=== PATIENT | male | born 1960 | race Caucasian/White ===

== ENCOUNTER 2022-07-21 03:30 | Observation (INO) ==
[2022-07-21] MEDS ORDERED: Ipratropium/Albuterol Neb 3 ML IH ONE (04:15)
[2022-07-21 04:53] LABS: Basophils # 0.1 K/mcL (0.0-0.2); Basophils % 0.5 %; Eosinophils # 0.1 K/mcL (0.0-0.6); Eosinophils % 0.5 %; Hematocrit 41.8 % (37.5-50.1); Hemoglobin 13.7 g/dL (12.9-16.9); Immature Granulocytes % 0.4 % (0-4); Lymphocytes # 0.6 K/mcL (0.6-4.6); Lymphocytes % 4.4 %; Mean Corpuscular HGB Conc 32.8 g/dL (31.6-35.5); Mean Corpuscular Hemoglobin 29.3 pg (28.0-33.3); Mean Corpuscular Volume 89.5 fL (83.0-100.0); Mean Platelet Volume 10.6 fL (9.4-12.4); Monocytes # 0.2 K/mcL (0.0-1.3); Monocytes % 1.4 %; Neutrophils # 12.4 K/mcL (1.6-8.9); Platelet Count 249 K/mcL (140-400); Red Blood Count 4.67 M/mcL (4.19-5.50); Red Cell Distribution Width 13.1 % (11.5-14.5); Segmented Neutrophils % 92.8 %; White Blood Count 13.3 K/mcL (4.3-11.1)
[2022-07-21 04:59] LABS: Prothrombin Time 11.3 Seconds (9.4-12.1)
[2022-07-21 05:03] LABS: Activated Partial Thrombo Time 35.3 Seconds (26.0-36.0)
[2022-07-21 05:16] LABS: Alanine Aminotransferase 18 Units/L (7-52); Albumin 4.5 g/dL (3.5-5.7); Albumin/Globulin Ratio 1.6 (1.1-2.2); Alkaline Phosphatase 67 Units/L (34-104); Aspartate Amino Transferase 18 Units/L (13-39); BUN/Creatinine Ratio 13 (6-26); Bilirubin,Direct 0.2 mg/dL (0.0-0.2); Bilirubin,Indirect 0.6 mg/dL (0.0-1.0); Bilirubin,Total 0.8 mg/dL (0.3-1.0); Blood Urea Nitrogen 16 mg/dL (8-23); Calcium 9.2 mg/dL (8.6-10.3); Carbon Dioxide 27 mEq/L (23-29); Chloride 100 mEq/L (98-107); Globulin 2.9 g/dL (2.4-3.5); Glucose 175 mg/dL (70-105); Osmolality,Calculated 289 (280-300); Potassium 4.1 mEq/L (3.5-5.1); Sodium 137 mEq/L (136-145); Total Protein 7.4 g/dL (6.4-8.9); Troponin I < 0.03 ng/mL (< 0.04)
[2022-07-21 07:14] LABS: VBG HCO3 28 mEq/L (21-27); VBG PCO2 45 mmHg (41-51); VBG PO2 101 mmHg (25-50)
[2022-07-21] MEDS ORDERED: Azithromycin 500 MG in 0.9 % Sodium Chloride 250 ML IVPB ONE (07:16)
[2022-07-21] MEDS ORDERED: cefTRIAXone 1,000 MG in 0.9 % Sodium Chloride Mini Bag 100 ML IVPB ONE (07:16)
[2022-07-21] MEDS ORDERED: methylPREDNISolone 125 MG/2 ML VIAL IVP ONE (07:17)
[2022-07-21] MEDS ORDERED: Naloxone 0.4 MG/ML INJ IVP PRN (07:30)
[2022-07-21] MEDS ORDERED: Ondansetron 4 MG/2 ML VIAL IVP PRN (07:30)
[2022-07-21] MEDS ORDERED: Acetaminophen 325 MG TABLET PO PRN (07:30)
[2022-07-21 08:28] LABS: Influenza A PCR Negative (Negative); Influenza B PCR Negative (Negative); Resp. Syncytial Virus PCR Negative (Negative)
[2022-07-21 08:29] LABS: SARS-CoV-2 by PCR (In House) Negative (Negative)
[2022-07-21 10:45] LABS: C-Reactive Protein 27 mg/L (Less than 10)
[2022-07-21] MEDS: Ipratropium/Albuterol Neb 3 ML IH SCH ×3 (11:37→21:31)
[2022-07-21] MEDS ORDERED: MethylPREDNISolone 40 MG/ML VIAL IVP SCH (12:00)
[2022-07-21] MEDS: Gabapentin 400 MG CAPSULE PO SCH ×2 (14:57→21:49)
[2022-07-21] MEDS: MethylPREDNISolone 40 MG/ML VIAL IVP SCH (14:57)
[2022-07-21] MEDS ORDERED: Acetaminophen/Aspirin/Caffeine TABLET PO PRN (18:28)
[2022-07-21] MEDS: Budesonide/Formoterol 160/4.5 1 PUFF INH IH SCH (21:31)
[2022-07-22] MEDS: MethylPREDNISolone 40 MG/ML VIAL IVP SCH ×3 (00:01→15:06)
[2022-07-22 03:26] LABS: Basophils % 0.1 %; Immature Granulocytes % 0.5 % (0-4); Lymphocytes # 1.1 K/mcL (0.6-4.6); Lymphocytes % 8.2 %; Mean Corpuscular HGB Conc 32.5 g/dL (31.6-35.5); Mean Corpuscular Hemoglobin 29.1 pg (28.0-33.3); Mean Corpuscular Volume 89.5 fL (83.0-100.0); Mean Platelet Volume 10.9 fL (9.4-12.4); Monocytes # 0.7 K/mcL (0.0-1.3); Monocytes % 5.2 %; Platelet Count 268 K/mcL (140-400); Red Blood Count 4.47 M/mcL (4.19-5.50); Red Cell Distribution Width 13.1 % (11.5-14.5); White Blood Count 12.9 K/mcL (4.3-11.1)
[2022-07-22] MEDS: Ipratropium/Albuterol Neb 3 ML IH SCH ×3 (03:44→16:12)
[2022-07-22] MEDS ORDERED: *HR* Enoxaparin 40 MG/0.4 ML SYRINGE SQ SCH (06:00)
[2022-07-22] MEDS: Gabapentin 400 MG CAPSULE PO SCH ×2 (08:05→15:06)
[2022-07-22] MEDS ORDERED: levoFLOXacin 500 MG TABLET PO SCH (09:00)
[2022-07-22] MEDS ORDERED: Loratadine 10 MG TABLET PO SCH (09:00)
[2022-07-22] MEDS: Budesonide/Formoterol 160/4.5 1 PUFF INH IH SCH (10:28)
[2022-07-22 15:00] VITALS: BP 127/75; PULSE 96; TEMP 97.3; O2SAT 96
== END 2022-07-22 16:46 | disposition home or self-care (01) ==
LOC: EMEROOARM 03:30 → 3BNU 03:30 → SUATTDRO 11:09 → 3BNU 12:06
PROVIDERS: ADMIT Internal Medicine; ATTEND Nurse Practitioner